=== PATIENT | female | born 2000 | race African-American/Black ===

== ENCOUNTER 2021-11-13 20:30 | Inpatient (IN) ==
--- NOTE | 2021-11-13 20:36 | Emergency Department Note ---
Impression & Plan Intentional overdose, Major depressive disorder, recurrent episode ED Provider Note NAME: CATIE MCFARLAND AGE: 21 SEX: F : 2000 ARRIVES VIA: Ambulance INFORMANT: Patient, ED PROVIDER(S): Amado Suero MD Chief Complaint: Overdose HPI: Patient presented due to concern for overdose. The patient took an unknown amount of an antipsychotic, Pamprin as well as omeprazole. Per the patient's medication list patient takes Lamictal and escitalopram. Patient also takes aripiprazole. Patient had episode of vomiting prior to arrival. Patient is 20's mild upper abdominal pain. No reported trauma. The patient did take with the intent to harm her self. The patient denies any HI or AVH. Patient has a place to go and denies any access to guns or weapons. ROS: See HPI for pertinent positives and negatives. A total of 10 systems were reviewed and otherwise negative. Past medical history: See below Surgical history: See below Social history: See below Physical Exam: GENERAL: Resting comfortably laying on her left side, opens eyes to voice and follows basic commands. EYE EXAM: Normal conjunctiva. PERRL, no anisocoria and EOM's grossly intact w/o pain. OROPHARYNX: Moist mucus membranes. Grossly normal dentition. NECK: Supple, no nuchal rigidity, no adenopathy, non-tender. No signs of meningismus. LUNGS: Clear to auscultation. Normal chest wall mechanics. HEART: NSR, no MRG. ABDOMEN: Abdomen soft, non-tender, normo-active bowel sounds, no masses, no rebound or guarding. BACK: No CVA TTP. SKIN: No rashes and no bruising. UPPER EXTREMITIES: Upper extremities are grossly normal. LOWER EXTREMITIES: Grossly normal, no edema. NEURO EXAM: GCS of 14, opens eyes to voice and does follow commands, cranial nerves II-XII grossly intact, normal speech, moves all 4 extremities on command w/o issue. Psych: Positive SI, negative HI or AVH. Differential diagnoses: Overdose, toxicologic, infection, hypoglycemia, electrolyte abnormalities, cardiac sources, intracerebral event, neurologic, trauma, as well as other pathologies. Course: Patient was seen and evaluated the bedside. Full history physical exam was performed. EKG interpreted by me Normal sinus rhythm, rate of 66, normal intervals, normal axis, no ST elevations. Imaging Studies: See Below [Cardiac monitoring: An order was placed for continuous cardiac monitoring. The monitor shows a rate of with rhythm.] MDM: Patient did present for possible overdose on unknown amount of Pamprin, omeprazole as well as psych medications. I did initiate a call to poison control after the patient did have blood work and tox laboratory work completed. They did recommend bicarb for QRS greater than 120 mag for QTC greater than 500. They did recommend IV fluids for tachycardia. They did recommend a repeat Tylenol at 4 hours. Recommended denies of pains for any tremors or seizures. Patient had a pending repeat Tylenol level at the time of signout to Dr. Cha who was the overnight physician. Poison control had recommended o bservation for 12 hours postingestion given the patient's Escitalopram use. A repeat EKG was ordered at 8 AM. Past Med/Surg History Medical History Major depress dis, severe Multiple fractures of ribs of left side No chronic diseases present Suicidal ideation Surgical History H/O oral surgery Family History Aunt Breast cancer maternal Other Hypertension Denies family history of Ovarian cancer Social History Smoking Status: Unknown if ever smoked Tobacco Type: E-cigarettes / Vaping Preferred Language: Lithuanian Communication Ability: Effective Pulley Maintainer Required: No Beliefs That Will Affect Care: None Feels Safe at Home: Yes Assistive Devices: None Allergies Allergies Allergy/AdvReac Type Severity Reaction Status Date / Time No Known Allergies Allergy Verified 06/07/21 14:26 Home Meds Home Medications Medication Instructions Recorded Confirmed aripiprazole 5 mg tablet 5 mg PO DAILY 11/13/21 11/13/21 escitalopram oxalate 10 mg tablet 10 mg PO DAILY 11/13/21 11/13/21 lamotrigine 25 mg tablet 25 mg PO DAILY 11/13/21 11/13/21 omeprazole 20 mg capsule,delayed 20 mg PO DAILY PRN 11/13/21 11/13/21 release Results & Data (ED) Vital Signs Vital Signs - 24 hr 11/13/21 20:45 11/13/21 20:54 11/13/21 22:15 Pulse Rate 57 L Pulse Rate [Apical] 54 L 61 Pulse Rate from SpO2 Sensor Pulse Rhythm [Apical] Respiratory Rate 11 L 11 L 18 Respiratory Effort / Characteristics Respiratory Depth Normal Normal Respiratory Pattern Blood Pressure 105/67 Blood Pressure [Left Arm] 102/64 Blood Pressure Mean 79 Blood Pressure Mean [Left Arm] 76 Blood Pressure Position [Left Arm] Pulse Oximetry 98 98 96 Oxygen Delivery Method Room Air Room Air Sepsis Recent Fever Within 48 Hours No Sepsis New/Unexplained Change in Mental Status No Sepsis Action Taken by Nursing No Action Required 11/14/21 00:15 11/14/21 02:15 11/14/21 04:00 Pulse Rate Pulse Rate [Apical] 64 61 56 L Pulse Rate from SpO2 Sensor Pulse Rhythm [Apical] Regular Respiratory Rate 18 16 18 Respiratory Effort / Characteristics Non-Labored Spontaneous Respiratory Depth Normal Respiratory Pattern Regular Blood Pressure Blood Pressure [Left Arm] 103/69 117/68 95/57 L Blood Pressure Mean Blood Pressure Mean [Left Arm] 80 84 69 Blood Pressure Position [Left Arm] Sitting Pulse Oximetry 97 96 96 Oxygen Delivery Method Room Air Room Air Room Air Sepsis Recent Fever Within 48 Hours Sepsis New/Unexplained Change in Mental Status Sepsis Action Taken by Nursing 11/14/21 06:00 11/14/21 07:00 11/14/21 07:30 Pulse Rate 64 90 Pulse Rate [Apical] 57 L Pulse Rate from SpO2 Sensor Pulse Rhythm [Apical] Respiratory Rate 18 15 16 Respiratory Effort / Characteristics Respiratory Depth Respiratory Pattern Blood Pressure 103/57 L Blood Pressure [Left Arm] 99/59 L Blood Pressure Mean 72 Blood Pressure Mean [Left Arm] 72 Blood Pressure Position [Left Arm] Pulse Oximetry 98 96 98 Oxygen Delivery Method Room Air Sepsis Recent Fever Within 48 Hours Sepsis New/Unexplained Change in Mental Status Sepsis Action Taken by Nursing 11/14/21 08:00 11/14/21 08:30 Pulse Rate 60 61 Pulse Rate [Apical] Pulse Rate from SpO2 Sensor 62 Pulse Rhythm [Apical] Respiratory Rate 17 16 Respiratory Effort / Characteristics Respiratory Depth Respiratory Pattern Blood Pressure 116/70 Blood Pressure [Left Arm] Blood Pressure Mean 85 Blood Pressure Mean [Left Arm] Blood Pressure Position [Left Arm] Pulse Oximetry 95 97 Oxygen Delivery Method Sepsis Recent Fever Within 48 Hours Sepsis New/Unexplained Change in Mental Status Sepsis Action Taken by Shelter Medications Current Medication List: was personally reviewed by mo Laboratory Data Attestation: I reviewed the patient's lab results. Result diagrams: 11/13/21 20:46 11/13/21 20:46 Lab Results 11/13/21 11/13/21 11/13/21 Range/Units 20:46 20:46 20:46 WBC 8.09 (4.8-10.8) K/uL RBC 4.34 (4.2-5.4) M/uL Hgb 12.0 (12.0-16.0) g/dL Hct 35.7 L (37-47) % MCV 82.3 (80-100) fL MCH 27.6 (25-34) pg MCHC 33.6 (32-36) g/dL RDW Std Deviation 45.4 (36.4-46.3) fL RDW Coeff of [place] 15.0 H (11.5-14.5) % Plt Count 383 (130-400) K/uL MPV 9.9 (7.4-10.4) fL Immature Gran % (Auto) 0.1 % Neut % (Auto) 49.6 % Lymph % (Auto) 33.7 % [place] % (Auto) 10.6 % Eos % (Auto) 5.4 % Baso % (Auto) 0.6 % Neut # (Auto) 4.00 (1.4-6.5) K/uL Lymph # (Auto) 2.73 (1.2-3.4) K/uL [place] # (Auto) 0.86 H (0.11-0.59) K/uL Eos # (Auto) 0.44 (0-0.5) K/uL Baso # (Auto) 0.05 (0-0.2) K/uL Immature Gran # (Auto) 0.01 (0.00-0.02) K/uL PT (9.0-12.0) Seconds INR (0.9-1.1) APTT (21.0-31.0) Seconds PTT Ratio Sodium 140 (136-145) mmol/L Potassium 3.2 L (3.5-5.1) mmol/L Chloride 106 (98-107) mmol/L Carbon Dioxide 25 (21-32) mmol/L Anion Gap 9 (3-11) BUN 8 (6-23) mg/dl Creatinine 0.83 (0.6-1.2) mg/dl Est Cr Clr Drug Dosing Not Reportable Est GFR ( Amer) 116.0 ml/min Est GFR (Non-Af Amer) 100.1 ml/min BUN/Creatinine Ratio 9.6 L (10-20) Glucose 91 (70-99(Fasting)) mg/dl Calcium 9.5 (8.5-10.1) mg/dl Magnesium 1.9 (1.7-2.4) mg/dl Total Bilirubin 0.5 (0.2-1.0) mg/dl AST 17 (13-39) U/L ALT 10 (7-52) U/L Alkaline Phosphatase 52 (34-104) U/L Total Creatine Kinase 82 (26-192) U/L Total Protein 7.9 (6.0-8.3) gm/dl Albumin 4.4 (3.4-5.0) gm/dl Globulin 3.5 (2.5-4.0) gm/dl Albumin/Globulin Ratio 1.3 (0.9-2) Urine Color Urine Appearance (Clear) Urine pH (4.5-7.5) Ur Specific [place] (1.000-1.030) Urine Protein (Negative) Urine Glucose (UA) (Negative) Urine Ketones (Negative) Urine Blood (Negative) Urine Nitrite (Negative) Urine Bilirubin (Negative) Urine Urobilinogen (Negative) Ur Leukocyte Esterase (Negative) Urine WBC (Auto) (0-5) /hpf Urine RBC (Auto) (0-4) /hpf U Hyaline Cast (Auto) (0-5) /lpf U Epithel Cells (Auto) (0-5) /lpf Urine Bacteria (Auto) (Negative) Urine Mucus (None Prsent) Urine Test (Negative) Salicylates 3.1 (3.0-30) mg/dl Urine Opiates Screen (Neg) Ur Methadone, Qual (Neg) Acetaminophen 11 (10-30) ug/ml Urine Barbiturates (Neg) Ur Phencyclidine (PCP) (Neg) U Amphetamin/Meth Scrn (Neg) MDMA (Ecstasy) Screen (Neg) U Benzodiazepines Scrn (Neg) Ur Cocaine Metabolite (Neg) U Marijuana (THC) Screen (Neg) Ethyl Alcohol mg/dL (<10.0) mg/dl SARS-CoV-2, RNA, NAAT (NEGATIVE) 11/13/21 11/13/21 11/13/21 Range/Units 20:46 20:48 21:03 WBC (4.8-10.8) K/uL RBC (4.2-5.4) M/uL Hgb (12.0-16.0) g/dL Hct (37-47) % MCV (80-100) fL MCH (25-34) pg MCHC (32-36) g/dL RDW Std Deviation (36.4-46.3) fL RDW Coeff of [place] (11.5-14.5) % Plt Count (130-400) K/uL MPV (7.4-10.4) fL Immature Gran % (Auto) % Neut % (Auto) % Lymph % (Auto) % [place] % (Auto) % Eos % (Auto) % Baso % (Auto) % Neut # (Auto) (1.4-6.5) K/uL Lymph # (Auto) (1.2-3.4) K/uL [place] # (Auto) (0.11-0.59) K/uL Eos # (Auto) (0-0.5) K/uL Baso # (Auto) (0-0.2) K/uL Immature Gran # (Auto) (0.00-0.02) K/uL PT 11.5 (9.0-12.0) Seconds INR 1.1 (0.9-1.1) APTT 24.2 (21.0-31.0) Seconds PTT Ratio 0.9 Sodium (136-145) mmol/L Potassium (3.5-5.1) mmol/L Chloride (98-107) mmol/L Carbon Dioxide (21-32) mmol/L Anion Gap (3-11) BUN (6-23) mg/dl Creatinine (0.6-1.2) mg/dl Est Cr Clr Drug Dosing Est GFR ( Amer) ml/min Est GFR (Non-Af Amer) ml/min BUN/Creatinine Ratio (10-20) Glucose (70-99(Fasting)) mg/dl Calcium (8.5-10.1) mg/dl Magnesium (1.7-2.4) mg/dl Total Bilirubin (0.2-1.0) mg/dl AST (13-39) U/L ALT (7-52) U/L Alkaline Phosphatase (34-104) U/L Total Creatine Kinase (26-192) U/L Total Protein (6.0-8.3) gm/dl Albumin (3.4-5.0) gm/dl Globulin (2.5-4.0) gm/dl Albumin/Globulin Ratio (0.9-2) Urine Color Urine Appearance (Clear) Urine pH (4.5-7.5) Ur Specific [place] (1.000-1.030) Urine Protein (Negative) Urine Glucose (UA) (Negative) Urine Ketones (Negative) Urine Blood (Negative) Urine Nitrite (Negative) Urine Bilirubin (Negative) Urine Urobilinogen (Negative) Ur Leukocyte Esterase (Negative) Urine WBC (Auto) (0-5) /hpf Urine RBC (Auto) (0-4) /hpf U Hyaline Cast (Auto) (0-5) /lpf U Epithel Cells (Auto) (0-5) /lpf Urine Bacteria (Auto) (Negative) Urine Mucus (None Prsent) Urine Test (Negative) Salicylates (3.0-30) mg/dl Urine Opiates Screen (Neg) Ur Methadone, Qual (Neg) Acetaminophen (10-30) ug/ml Urine Barbiturates (Neg) Ur Phencyclidine (PCP) (Neg) U Amphetamin/Meth Scrn (Neg) MDMA (Ecstasy) Screen (Neg) U Benzodiazepines Scrn (Neg) Ur Cocaine Metabolite (Neg) U Marijuana (THC) Screen (Neg) Ethyl Alcohol mg/dL < 10.0 (<10.0) mg/dl SARS-CoV-2, RNA, NAAT NEGATIVE (NEGATIVE) 11/13/21 11/13/21 11/13/21 Range/Units 23:20 23:20 23:20 WBC (4.8-10.8) K/uL RBC (4.2-5.4) M/uL Hgb (12.0-16.0) g/dL Hct (37-47) % MCV (80-100) fL MCH (25-34) pg MCHC (32-36) g/dL RDW Std Deviation (36.4-46.3) fL RDW Coeff of [place] (11.5-14.5) % Plt Count (130-400) K/uL MPV (7.4-10.4) fL Immature Gran % (Auto) % Neut % (Auto) % Lymph % (Auto) % [place] % (Auto) % Eos % (Auto) % Baso % (Auto) % Neut # (Auto) (1.4-6.5) K/uL Lymph # (Auto) (1.2-3.4) K/uL [place] # (Auto) (0.11-0.59) K/uL Eos # (Auto) (0-0.5) K/uL Baso # (Auto) (0-0.2) K/uL Immature Gran # (Auto) (0.00-0.02) K/uL PT (9.0-12.0) Seconds INR (0.9-1.1) APTT (21.0-31.0) Seconds PTT Ratio Sodium (136-145) mmol/L Potassium (3.5-5.1) mmol/L Chloride (98-107) mmol/L Carbon Dioxide (21-32) mmol/L Anion Gap (3-11) BUN (6-23) mg/dl Creatinine (0.6-1.2) mg/dl Est Cr Clr Drug Dosing Est GFR ( Amer) ml/min Est GFR (Non-Af Amer) ml/min BUN/Creatinine Ratio (10-20) Glucose (70-99(Fasting)) mg/dl Calcium (8.5-10.1) mg/dl Magnesium (1.7-2.4) mg/dl Total Bilirubin (0.2-1.0) mg/dl AST (13-39) U/L ALT (7-52) U/L Alkaline Phosphatase (34-104) U/L Total Creatine Kinase (26-192) U/L Total Protein (6.0-8.3) gm/dl Albumin (3.4-5.0) gm/dl Globulin (2.5-4.0) gm/dl Albumin/Globulin Ratio (0.9-2) Urine Color Yellow Urine Appearance Cloudy A (Clear) Urine pH 6.0 (4.5-7.5) Ur Specific [place] 1.030 (1.000-1.030) Urine Protein 1+ H (Negative) Urine Glucose (UA) Negative (Negative) Urine Ketones 2+ H (Negative) Urine Blood Negative (Negative) Urine Nitrite Negative (Negative) Urine Bilirubin Negative (Negative) Urine Urobilinogen Negative (Negative) Ur Leukocyte Esterase Trace H (Negative) Urine WBC (Auto) 10-30 H (0-5) /hpf Urine RBC (Auto) 0-4 (0-4) /hpf U Hyaline Cast (Auto) 0 (0-5) /lpf U Epithel Cells (Auto) >30 H (0-5) /lpf Urine Bacteria (Auto) 1+ H (Negative) Urine Mucus Present A (None Prsent) Urine Test Negative (Negative) Salicylates (3.0-30) mg/dl Urine Opiates Screen Neg (Neg) Ur Methadone, Qual Neg (Neg) Acetaminophen (10-30) ug/ml Urine Barbiturates Neg (Neg) Ur Phencyclidine (PCP) Neg (Neg) U Amphetamin/Meth Scrn Neg (Neg) MDMA (Ecstasy) Screen Neg (Neg) U Benzodiazepines Scrn Neg (Neg) Ur Cocaine Metabolite Neg (Neg) U Marijuana (THC) Screen Pos H (Neg) Ethyl Alcohol mg/dL (<10.0) mg/dl SARS-CoV-2, RNA, NAAT (NEGATIVE) 11/14/21 Range/Units 00:20 WBC (4.8-10.8) K/uL RBC (4.2-5.4) M/uL Hgb (12.0-16.0) g/dL Hct (37-47) % MCV (80-100) fL MCH (25-34) pg MCHC (32-36) g/dL RDW Std Deviation (36.4-46.3) fL RDW Coeff of [place] (11.5-14.5) % Plt Count (130-400) K/uL MPV (7.4-10.4) fL Immature Gran % (Auto) % Neut % (Auto) % Lymph % (Auto) % [place] % (Auto) % Eos % (Auto) % Baso % (Auto) % Neut # (Auto) (1.4-6.5) K/uL Lymph # (Auto) (1.2-3.4) K/uL [place] # (Auto) (0.11-0.59) K/uL Eos # (Auto) (0-0.5) K/uL Baso # (Auto) (0-0.2) K/uL Immature Gran # (Auto) (0.00-0.02) K/uL PT (9.0-12.0) Seconds INR (0.9-1.1) APTT (21.0-31.0) Seconds PTT Ratio Sodium (136-145) mmol/L Potassium (3.5-5.1) mmol/L Chloride (98-107) mmol/L Carbon Dioxide (21-32) mmol/L Anion Gap (3-11) BUN (6-23) mg/dl Creatinine (0.6-1.2) mg/dl Est Cr Clr Drug Dosing Est GFR ( Amer) ml/min Est GFR (Non-Af Amer) ml/min BUN/Creatinine Ratio (10-20) Glucose (70-99(Fasting)) mg/dl Calcium (8.5-10.1) mg/dl Magnesium (1.7-2.4) mg/dl Total Bilirubin (0.2-1.0) mg/dl AST (13-39) U/L ALT (7-52) U/L Alkaline Phosphatase (34-104) U/L Total Creatine Kinase (26-192) U/L Total Protein (6.0-8.3) gm/dl Albumin (3.4-5.0) gm/dl Globulin (2.5-4.0) gm/dl Albumin/Globulin Ratio (0.9-2) Urine Color Urine Appearance (Clear) Urine pH (4.5-7.5) Ur Specific [place] (1.000-1.030) Urine Protein (Negative) Urine Glucose (UA) (Negative) Urine Ketones (Negative) Urine Blood (Negative) Urine Nitrite (Negative) Urine Bilirubin (Negative) Urine Urobilinogen (Negative) Ur Leukocyte Esterase (Negative) Urine WBC (Auto) (0-5) /hpf Urine RBC (Auto) (0-4) /hpf U Hyaline Cast (Auto) (0-5) /lpf U Epithel Cells (Auto) (0-5) /lpf Urine Bacteria (Auto) (Negative) Urine Mucus (None Prsent) Urine Test (Negative) Salicylates (3.0-30) mg/dl Urine Opiates Screen (Neg) Ur Methadone, Qual (Neg) Acetaminophen 5 L (10-30) ug/ml Urine Barbiturates (Neg) Ur Phencyclidine (PCP) (Neg) U Amphetamin/Meth Scrn (Neg) MDMA (Ecstasy) Screen (Neg) U Benzodiazepines Scrn (Neg) Ur Cocaine Metabolite (Neg) U Marijuana (THC) Screen (Neg) Ethyl Alcohol mg/dL (<10.0) mg/dl SARS-CoV-2, RNA, NAAT (NEGATIVE) Administered Medications Ondansetron HCl (Ondansetron 4 Mg Od Tab) 4 mg PO Q8H PRN PRN Reason: Nausea Stop: 12/14/21 13:43 Last Admin: 11/14/21 14:09 Dose: 4 mg Documented by: [id number] Discontinued Medications Potassium Chloride (Potassium Chloride Crtab 20 Meq Tabcr) 40 meq PO NOW STA Stop: 11/14/21 12:35 Last Admin: 11/14/21 13:30 Dose: 40 meq Documented by: [id number] Discharge Plan Visit Data Chief Complaint: Overdose (Intentional) Discharge Problem: Intentional overdose, Major depressive disorder, recurrent episode Patient Disposition: Admitted As Inpatient Discharge Instructions Interventions: ED Discharge Assessment Last Done: 11/14/21 10:33
[2021-11-13 20:59] LABS: Basophils # (auto) 0.05 K/uL (0-0.2); Basophils % (auto) 0.6 %; Eosinophils # (auto) 0.44 K/uL (0-0.5); Eosinophils % (auto) 5.4 %; Hematocrit (blood only) 35.7 % (37-47); Immature Granulocytes # (auto) 0.01 K/uL (0.00-0.02); Immature Granulocytes % (auto) 0.1 %; Lymphocytes # (auto) 2.73 K/uL (1.2-3.4); Lymphocytes % (auto) 33.7 %; Mean Corpuscular Hemoglobin 27.6 pg (25-34); Mean Corpuscular Hgb Conc 33.6 g/dL (32-36); Mean Corpuscular Volume 82.3 fL (80-100); Mean Platelet Volume 9.9 fL (7.4-10.4); Monocytes # (auto) 0.86 K/uL (0.11-0.59); Monocytes % (auto) 10.6 %; Neutrophils % (auto) 49.6 %; Platelet Count 383 K/uL (130-400); RDW Standard Deviation 45.4 fL (36.4-46.3); Red Blood Count 4.34 M/uL (4.2-5.4); White Blood Count 8.09 K/uL (4.8-10.8)
[2021-11-13 21:15] LABS: INR 1.1 (0.9-1.1); Partial Thromboplastin Ratio 0.9; Partial Thromboplastin Time 24.2 Seconds (21.0-31.0); Prothrombin Time 11.5 Seconds (9.0-12.0)
[2021-11-13 21:19] LABS: Alanine Aminotransferase 10 U/L (7-52); Albumin Globulin Ratio 1.3 (0.9-2); Albumin Level 4.4 gm/dl (3.4-5.0); Alkaline Phosphatase 52 U/L (34-104); Anion Gap 9 (3-11); Aspartate Aminotransferase 17 U/L (13-39); BUN Creatinine Ratio 9.6 (10-20); Bilirubin,Total 0.5 mg/dl (0.2-1.0); Blood Urea Nitrogen 8 mg/dl (6-23); Calcium 9.5 mg/dl (8.5-10.1); Carbon Dioxide 25 mmol/L (21-32); Chloride 106 mmol/L (98-107); Creatine Kinase 82 U/L (26-192); Est GFR (Non-African American) 100.1 ml/min; Globulin 3.5 gm/dl (2.5-4.0); Glucose 91 mg/dl (70-99(Fasting)); Magnesium 1.9 mg/dl (1.7-2.4); Potassium 3.2 mmol/L (3.5-5.1); Sodium 140 mmol/L (136-145); Total Protein 7.9 gm/dl (6.0-8.3)
[2021-11-13 21:28] LABS: Salicylate 3.1 mg/dl (3.0-30)
[2021-11-13 23:43] LABS: Appearance Urine Cloudy (Clear); Bacteria Urine Automated 1+ (Negative); Bilirubin Urine Negative (Negative); Blood Urine Negative (Negative); Color Urine Yellow; Epithelial Cell Urine Auto >30 /lpf (0-5); Glucose Urine UA Negative (Negative); Ketones Urine 2+ (Negative); Leukocyte Esterase Urine Trace (Negative); Nitrite Urine Negative (Negative); Protein Urine 1+ (Negative); RBC Urine Automated 0-4 /hpf (0-4); Urobilinogen Urine Negative (Negative)
[2021-11-13 23:45] LABS: Pregnancy Test, Urine Negative (Negative)
[2021-11-14 00:22] LABS: Amphetamines+Metham, Urine Neg (Neg); Barbiturates, Urine Neg (Neg); Benzodiazepine, Urine Neg (Neg); Cocaine, Urine Neg (Neg); MDMA (Ecstacy), Urine Neg (Neg); Methadone, Urine Neg (Neg); Opiate, Urine Neg (Neg); Phencyclidine, Urine Neg (Neg)
[2021-11-14 00:46] LABS: Cast Urine Automated 0 /lpf (0-5); Mucus Urine Present (None Prsent)
--- NOTE | 2021-11-14 08:47 | Emergency Department Note ---
ED Visit Note Patient signed out to me at change of shift from Dr. Suero. Patient awaiting additional observation time per recommendation of poison control. Patient's repeat Tylenol level decreased from 11-5. No issues reported to me overnight and patient hemodynamically stable. No other new or evolving symptoms. Repeat EKG around 8 AM was well-appearing, patient now medically clear for mental health evaluation. Patient signed out to Dr. Sung in the morning. .
[2021-11-14] MEDS ORDERED: ALUMINUM/MAGNESIUM SUSP 30 ML UDC PO PRN (11:09)
[2021-11-14] MEDS ORDERED: SODIUM CHLORIDE 0.65% NA SOLN 45 ML (OCEAN) PRN (11:09)
[2021-11-14] MEDS ORDERED: hydrOXYzine HCl 25 MG TAB PO PRN ×2 (11:09)
[2021-11-14] MEDS ORDERED: MAGNESIUM HYDROXIDE SUSP 30 ML UDC PO PRN (11:09)
[2021-11-14] MEDS ORDERED: BISMUTH SUBSALICYLATE LIQD 236 ML PO PRN (11:09)
[2021-11-14] MEDS ORDERED: IBUPROFEN 600 MG TAB PO PRN (11:10)
[2021-11-14] MEDS ORDERED: POTASSIUM CHLORIDE CRTAB 20 MEQ TABCR PO STA (12:34)
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
[2021-11-14] MEDS ORDERED: ONDANSETRON 4 MG OD TAB PO PRN (13:44)
--- NOTE | 2021-11-14 15:41 | Emergency Department Note ---
ED Visit Note The patient was taken signout from Dr. Cha at change of shift. The patient was initially seen by Dr. Suero. Please see his note for details of the patient's initial presentation. In brief, the patient is a 21-year-old woman who presented emergency department after an overdose attempt on her medications which include aripiprazole, escitalopram and lamotrigine. Poison control was consulted and the patient was observed for the recommended 12-hour period and was medically cleared. Psychiatric case management evaluation was completed. Referral was made to [facility] who accepted the patient for admission
[2021-11-15 09:05] LABS: Chol HDL Ratio 2.8 (0-5); Potassium 4.3 mmol/L (3.5-5.1)
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
--- NOTE | 2021-11-15 14:05 | Electrocardiogram Report ---
Test Reason : Blood Pressure : / mmHG Vent. Rate : 066 BPM Atrial Rate : 066 BPM P-R Int : 138 ms QRS Dur : 062 ms QT Int : 408 ms P-R-T Axes : 071 064 038 degrees QTc Int : 427 ms Normal sinus rhythm Possible Left atrial enlargement Early repolarization Abnormal ECG When compared with ECG of 01-JUL-2021 22:11, No significant change Confirmed by Luca Dan ([id number]) on 11/15/2021 2:05:24 PM Referred By: REFERRED SELF Confirmed By:Luca Dan
--- NOTE | 2021-11-15 15:34 | Electrocardiogram Report ---
Test Reason : Blood Pressure : / mmHG Vent. Rate : 056 BPM Atrial Rate : 056 BPM P-R Int : 140 ms QRS Dur : 076 ms QT Int : 456 ms P-R-T Axes : 073 050 028 degrees QTc Int : 440 ms Sinus bradycardia Early repolarization Nonspecific T wave abnormality Abnormal ECG When compared with ECG of 13-NOV-2021 21:01, No significant change was found Confirmed by Luca Dan ([id number]) on 11/15/2021 3:33:41 PM Referred By: REFERRED SELF Confirmed By:Luca Dan
[2021-11-16 05:52] LABS: Marijuana Quant, GCMS Urine 2406 ng/mL (<5)
--- NOTE | 2021-11-16 08:45 | Psychiatric Progress Note ---
Date of Service November 16, 2021 Impression / Recommendations Impression 21 yo woman with history of BPAD, MDD, trauma and prior suicide attempts admitted following a suicide attempt via polypharmacy overdose on 302 status. Diagnostically consistent with MDD versus BPAD type II given history of periods of elevated, sustained mood consistent with possible episodes of hypomania/maria luisa in additional to historical diagnosis of BPD. Discussed medication treatment options in detail. Discussed risks, benefits and alternatives. Patient would like to start abilify again and lamictal for mood stabilization and depression. Reviewed risks including but not limited to potential for fatal rash with lamictal and metabolic and movement (TD, acute dystonic rxn) side effects with abilify. Reviewed fasting lipid and glucose which were normal and AIMS 0. (1) Major depressive disorder, recurrent episode: (2) Borderline personality disorder: (3) Bipolar 2 disorder: 11/16/21: Restart abilify 2.5 mg qd and lamictal 25mg qAM tomorrow pending non-elevated lamictal level. 11/15/21: fasting labs reviewed in anticipation of Abilify restart. Potassium is now corrected. 11/14/21: The patient was [facility] on q15 min checks (behavioral with suicide precautions) for safety. The patient will participate in group, recreational, and milieu therapies and will be offered additional individual and family sessions as clinically appropriate. Hold all home meds. Anticipate restarting Abilify soon so will order fasting metabolic labs in am with repeat K (repleting). Repeat UA if desires. Inventory Assets Strengths: has persevered as college student, trauma survivor Needs: engage family again, ongoing aftercare ideally with a DBT component Risk Factors Assessment Do You Have Access To A Gun?: No Mental Health Diagnoses: Yes Previous Attempt: Yes Previous Psychiatric Hospitalization: Yes Protective Factors Assessment : Yes Employed: Yes Supportive Family: Yes (sister) Interval History Identifying Information CATIE MCFARLAND is a 21-year-old F, [employer] student, has a history of a previous admission to 10/2020, and was admitted on 11/14/21 10:21 on a 302 involuntary commitment s/p polydrug OD. Chief Complaint "I'm ok". Review of Systems Sleep Information Total Hours of Sleep: 6.5 Meal Information Percent Meal Consumed - Breakfast: 50 Percent Meal Consumed - Lunch: 25 Percent Meal Consumed - Dinner: 90 Nutrition Comment: pt c/o nausea Subjective Subjective Patient was seen & assessed and interval progress reviewed with treatment team nursing and social work. Has been out of her room and attending some groups. Guarded and withdrawn. Today denies SI, feels this attempt was different "from the past" because she has not felt suicidal since the attempt. She's unsure why her suicidal ideation has resolved. Reviewed restarting medications which she is agreeable to. Denies any other questions or concerns. Physical Exam Psychiatric Orientation: alert and oriented x 3 Apperance: appropriately dressed and appropriately groomed Eye Contact: good eye contact Motor Behavior: no abnormal motor movements Speech: normal rate/rhythm/volume of speech Affect: + constricted affect Mood: + depressed mood Thought Process: goal directed thought process and + concrete thought process Thought Content: reality based without delusions Suicidal Thoughts: denies suicidal thoughts Homicidal Thoughts: denies homicidal thoughts Hallucinations: no auditory hallucinations and no visual hallucinations Cognition: recent memory grossly intact, remote memory grossly intact, attention grossly intact and language grossly intact Estimated Intelligence: consistent with education level Insight: + limited insight Judgement: + limited judgement Vital Signs (Past 24 Hours) Last Vital Signs Temp 36.7 C 11/16/21 06:00 Pulse 71 11/16/21 06:50 Resp 14 11/16/21 06:00 BP 93/62 L 11/16/21 06:50 Pulse Ox 99 11/14/21 11:12 Results & Data ([facility]) Laboratory Results Laboratory Results - last 24 hr 11/13/21 11/15/21 23:20 07:34 Potassium 4.3 D Fasting Glucose 82 Triglycerides 55 Cholesterol 138 LDL Cholesterol, Calc 77 VLDL Cholesterol, Calc 11 HDL Cholesterol 50 Cholesterol/HDL Ratio 2.8 U Marijuana THC Carboxy 2406 H Drug Screen Comment SEE NOTE Lamictal level pending. Current Inpatient Medications Current Inpatient Medications: Current Inpatient Medications Al Hydrox/Mg Hydrox/Simethicone (Aluminum/Magnesium Susp 30 Ml Udc) 30 ml PO Q4H PRN PRN Reason: GI Upset Stop: 12/14/21 11:08 Bismuth Subsalicylate (Bismuth Subsalicylate Liqd 236 Ml) 15 ml PO PRN PRN PRN Reason: Loose Stool Stop: 12/14/21 11:08 Hydroxyzine HCl (Hydroxyzine Hcl 25 Mg Tab) 50 mg PO HSZ PRN PRN Reason: Insomnia Stop: 12/14/21 11:08 Hydroxyzine HCl (Hydroxyzine Hcl 25 Mg Tab) 25 mg PO Q4H PRN PRN Reason: Anxiety Stop: 12/14/21 11:08 Ibuprofen (Ibuprofen 600 Mg Tab) 600 mg PO Q6H PRN PRN Reason: Pain Stop: 12/14/21 11:09 Magnesium Hydroxide (Magnesium Hydroxide Susp 30 Ml Udc) 30 ml PO DAILY PRN PRN Reason: Constipation Stop: 12/14/21 11:08 Ondansetron HCl (Ondansetron 4 Mg Od Tab) 4 mg PO Q8H PRN PRN Reason: Nausea Stop: 12/14/21 13:43 Last Admin: 11/14/21 14:09 Dose: 4 mg Documented by: Sodium Chloride (Sodium Chloride 0.65% Na Soln 45 Ml ([place])) 1 - 2 sprays NA PRN PRN PRN Reason: Nasal Dryness/Congestion Stop: 12/14/21 11:08 Mental Health & Subst Abuse Tx Psychiatrist Name of Psychiatrist: [facility] - Dr. Kallie Tatum Psychiatrist's Date of Appointment with Psychiatrist: 11/28/21 Time of Appointment with Psychiatrist: 2:45 PM Psychiatric Appointment Comment: Telehealth Therapist Name of Therapist: [facility]- Dr. Mel Smyth Therapist's Date of Therapist Appointment: 11/19/21 Time of Therapist Appointment: 12:10 PM Therapy Appointment Comment: Telehealth Post Discharge Appointments Primary Care Physician Name Of Family Doctor: [facility] Primary Care Date of Appointment with PCP: 11/20/21 Time of Appointment with PCP: 1:20 pm Provider Appointment Comment: [facility] Kimberly NIEVES (1) Major depressive disorder, recurrent episode Major depression episode severity: unspecified Qualified Code(s): F33.9 - Major depressive disorder, recurrent, unspecified
[2021-11-16] MEDS: ARIPiprazole 5 MG TAB PO SCH (12:11)
--- NOTE | 2021-11-17 08:22 | Psychiatric Progress Note ---
Date of Service November 17, 2021 Impression / Recommendations Impression 21 yo woman with history of BPAD, MDD, trauma and prior suicide attempts admitted following a suicide attempt via polypharmacy overdose on 302 status. Diagnostically consistent with MDD versus BPAD type II given history of periods of elevated, sustained mood consistent with possible episodes of hypomania/maria luisa in additional to historical diagnosis of BPD. 11/17/21: Tolerating abilify initiation without side effects,still holding off on restarting lamictal given that level is still pending and unknown if lamictal was consumed as part of her suicide attempt (1) Major depressive disorder, recurrent episode: (2) Borderline personality disorder: (3) Bipolar 2 disorder: 11/17/21: Continue with abilify 2.5 mg qd, lamictal level still pending so holding off on restarting lamictal 11/16/21: Restart abilify 2.5 mg qd and lamictal 25mg qAM tomorrow pending non- elevated lamictal level. 11/15/21: fasting labs reviewed in anticipation of Abilify restart. Potassium is now corrected. 11/14/21: The patient was admitted to the [facility] ([facility]) on q15 min checks (behavioral with suicide precautions) for safety. The patient will participate in group, recreational, and milieu therapies and will be offered additional individual and family sessions as clinically appropriate. Hold all home meds. Anticipate restarting Abilify soon so will order fasting metabolic labs in am with repeat K (repleting). Repeat UA if desires. Inventory Assets Strengths: has persevered as college student, trauma survivor Needs: engage family again, ongoing aftercare ideally with a DBT component Risk Factors Assessment Do You Have Access To A Gun?: No Mental Health Diagnoses: Yes Previous Attempt: Yes Previous Psychiatric Hospitalization: Yes Protective Factors Assessment : Yes Employed: Yes Supportive Family: Yes (sister) Interval History Identifying Information CATIE MCFARLAND is a 21-year-old F, [employer] student, has a history of a previous admission to 10/2020, and was admitted on 11/14/21 10:21 on a 302 involuntary commitment s/p polydrug OD. Chief Complaint "I'm good". Review of Systems Sleep Information Total Hours of Sleep: 6.75 Meal Information Percent Meal Consumed - Breakfast: 50 Percent Meal Consumed - Lunch: 80 Percent Meal Consumed - Dinner: 75 Nutrition Comment: pt c/o nausea Subjective Subjective Patient was seen & assessed and interval progress reviewed with treatment team nursing and social work. More engaged yesterday, doing some exercises, smiling when talking about her girlfriend, attending groups and actively participating and offering helpful and supportive advice to peers and good insights into her own thoughts/emotions/behaviors. No side effects from abilify. Reports stable mood. Denies SI. Physical Exam Psychiatric Orientation: alert and oriented x 3 Apperance: appropriately dressed and appropriately groomed Eye Contact: good eye contact Motor Behavior: no abnormal motor movements Speech: normal rate/rhythm/volume of speech Affect: euthymic affect Mood: no depressed mood and no anxious mood Thought Process: goal directed thought process Thought Content: reality based without delusions Suicidal Thoughts: denies suicidal thoughts Homicidal Thoughts: denies homicidal thoughts Hallucinations: no auditory hallucinations and no visual hallucinations Cognition: recent memory grossly intact, remote memory grossly intact, attention grossly intact and language grossly intact Estimated Intelligence: consistent with education level Insight: + fair insight Judgement: + fair judgement Vital Signs (Past 24 Hours) Last Vital Signs Temp 36.9 C 11/17/21 06:19 Pulse 69 11/17/21 06:20 Resp 16 11/17/21 06:19 BP 121/88 11/17/21 06:20 Pulse Ox 99 11/14/21 11:12 Results & Data ([facility]) Current Inpatient Medications Current Inpatient Medications: Current Inpatient Medications Al Hydrox/Mg Hydrox/Simethicone (Aluminum/Magnesium Susp 30 Ml Udc) 30 ml PO Q4H PRN PRN Reason: GI Upset Stop: 12/14/21 11:08 Aripiprazole (Aripiprazole 5 Mg Tab) 2.5 mg PO QAM SHANICE Stop: 12/16/21 10:59 Last Admin: 11/16/21 12:11 Dose: 2.5 mg Documented by: Bismuth Subsalicylate (Bismuth Subsalicylate Liqd 236 Ml) 15 ml PO PRN PRN PRN Reason: Loose Stool Stop: 12/14/21 11:08 Hydroxyzine HCl (Hydroxyzine Hcl 25 Mg Tab) 50 mg PO HSZ PRN PRN Reason: Insomnia Stop: 12/14/21 11:08 Hydroxyzine HCl (Hydroxyzine Hcl 25 Mg Tab) 25 mg PO Q4H PRN PRN Reason: Anxiety Stop: 12/14/21 11:08 Ibuprofen (Ibuprofen 600 Mg Tab) 600 mg PO Q6H PRN PRN Reason: Pain Stop: 12/14/21 11:09 Magnesium Hydroxide (Magnesium Hydroxide Susp 30 Ml Udc) 30 ml PO DAILY PRN PRN Reason: Constipation Stop: 12/14/21 11:08 Ondansetron HCl (Ondansetron 4 Mg Od Tab) 4 mg PO Q8H PRN PRN Reason: Nausea Stop: 12/14/21 13:43 Last Admin: 11/14/21 14:09 Dose: 4 mg Documented by: Sodium Chloride (Sodium Chloride 0.65% Na Soln 45 Ml ([place])) 1 - 2 sprays NA PRN PRN PRN Reason: Nasal Dryness/Congestion Stop: 12/14/21 11:08 Mental Health & Subst Abuse Tx Psychiatrist Name of Psychiatrist: [facility] - Dr. Kallie Tatum Psychiatrist's Date of Appointment with Psychiatrist: 11/28/21 Time of Appointment with Psychiatrist: 2:45 PM Psychiatric Appointment Comment: Telehealth Therapist Name of Therapist: [facility]- Dr. Mel Smyth Therapist's Date of Therapist Appointment: 11/19/21 Time of Therapist Appointment: 12:10 PM Therapy Appointment Comment: Telehealth Post Discharge Appointments Primary Care Physician Name Of Family Doctor: [facility] Primary Care Date of Appointment with PCP: 11/20/21 Time of Appointment with PCP: 1:20 pm Provider Appointment Comment: [facility] (1) Major depressive disorder, recurrent episode Major depression episode severity: unspecified Qualified Code(s): F33.9 - Major depressive disorder, recurrent, unspecified
[2021-11-17] MEDS: ARIPiprazole 5 MG TAB PO SCH (09:03)
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
[2021-11-18] MEDS ORDERED: lamoTRIgine 25 MG TAB PO SCH (09:00)
[2021-11-18] MEDS: ARIPiprazole 5 MG TAB PO SCH (09:05)
== END 2021-11-18 12:55 | disposition home or self-care (01) | DRG 885 ==
LOC: ED 20:30 → 3S 11-14 10:21

== ENCOUNTER 2022-02-13 12:27 | Observation (INO) ==
[2022-02-13] MEDS ORDERED: SODIUM CHLORIDE 0.9% 1000ML 1,000 ML IV ONE (13:03)
--- NOTE | 2022-02-13 13:17 | Emergency Department Note ---
History of Present Illness General Chief complaint: Overdose (Intentional) Time Seen by Provider: 02/13/22 13:02 Source: patient Mode of arrival: EMS Limitations: no limitations History of Present Illness This patient is a 21-year-old female who has a history of depression, comes in after taking intentional overdose. She is very teary-eyed and has a flattened affect but answers questions appropriately. According to police he has some p ills on the bed and when they arrived she grabbed him and took them they managed to get some out of her mouth. She tells me she took Flagyl and Motrin. She does have a history of and having Atarax prescription filled and also Lamictal but denies that she took these. Denies drugs or alcohol. Denies Tylenol. She said she took these because" I did not want to be here anymore". She has had no vomiting or shortness of breath denies . She has not been sleeping well lately. I asked her about stressors and she says " what ever". She answers questions very tersely. She is had no recent illness fever or cough. Home Medications Medication Instructions Recorded Confirmed Type lamotrigine 25 mg tablet 25 mg PO DAILY 11/13/21 02/13/22 History hydroxyzine HCl 25 mg tablet 25 mg PO BID PRN 02/13/22 02/13/22 History lamotrigine 100 mg tablet 100 mg PO DAILY 02/13/22 02/13/22 History Allergies Allergy/AdvReac Type Severity Reaction Status Date / Time No Known Allergies Allergy Verified 02/13/22 13:19 Past Med/Surg History Medical History Anxiety Bipolar 2 disorder Borderline personality disorder Depression Intentional overdose Surgical History H/O oral surgery Family History Aunt Breast cancer maternal Other Hypertension Denies family history of Ovarian cancer Social History Smoking Status: Never smoker Tobacco Type: Cigarettes Hx Alcohol Use: No Hx Substance Use: Yes Preferred Language: Uzbek Communication Ability: Effective Assembler Product Required: No Beliefs That Will Affect Care: None Current Living Situation: Alone Feels Safe at Home: Yes Assistive Devices: None Review of Systems A total of 10 systems reviewed and were otherwise negative Physical Exam Vital Signs Vital Signs - 24 hr 02/13/22 12:19 02/13/22 12:38 02/13/22 12:39 Temperature 36.6 C Temperature Source Oral Pulse Rate 54 L Pulse Rate from SpO2 Sensor 81 Pulse Rhythm Regular Respiratory Rate 16 Respiratory Effort / Characteristics Non-Labored Respiratory Depth Normal Blood Pressure 119/68 119/68 Blood Pressure Mean 85 85 Pulse Oximetry 99 99 Oxygen Delivery Method Room Air Sepsis Recent Fever Within 48 Hours No Sepsis New/Unexplained Change in Mental Status No Sepsis Action Taken by Nursing No Action Required 02/13/22 12:40 02/13/22 12:50 02/13/22 13:00 Temperature Temperature Source Pulse Rate 71 58 L 60 Pulse Rate from SpO2 Sensor 70 Pulse Rhythm Respiratory Rate 7 L 12 16 Respiratory Effort / Characteristics Respiratory Depth Blood Pressure Blood Pressure Mean Pulse Oximetry 99 Oxygen Delivery Method Sepsis Recent Fever Within 48 Hours Sepsis New/Unexplained Change in Mental Status Sepsis Action Taken by Nursing 02/13/22 13:02 02/13/22 13:15 02/13/22 13:20 Temperature Temperature Source Pulse Rate 60 59 L 60 Pulse Rate from SpO2 Sensor 61 Pulse Rhythm Respiratory Rate 13 20 15 Respiratory Effort / Characteristics Respiratory Depth Blood Pressure 120/78 Blood Pressure Mean 92 Pulse Oximetry 100 Oxygen Delivery Method Sepsis Recent Fever Within 48 Hours Sepsis New/Unexplained Change in Mental Status Sepsis Action Taken by Nursing 02/13/22 13:30 02/13/22 13:40 02/13/22 13:50 Temperature Temperature Source Pulse Rate 59 L 56 L 53 L Pulse Rate from SpO2 Sensor 59 L 56 L 53 L Pulse Rhythm Respiratory Rate 20 17 16 Respiratory Effort / Characteristics Respiratory Depth Blood Pressure 122/81 Blood Pressure Mean 94 Pulse Oximetry 100 100 100 Oxygen Delivery Method Sepsis Recent Fever Within 48 Hours Sepsis New/Unexplained Change in Mental Status Sepsis Action Taken by Nursing 02/13/22 14:00 02/13/22 14:10 02/13/22 14:20 Temperature Temperature Source Pulse Rate 55 L 59 L 66 Pulse Rate from SpO2 Sensor 55 L 60 68 Pulse Rhythm Respiratory Rate 16 17 19 Respiratory Effort / Characteristics Respiratory Depth Blood Pressure 117/75 Blood Pressure Mean 89 Pulse Oximetry 100 99 100 Oxygen Delivery Method Sepsis Recent Fever Within 48 Hours Sepsis New/Unexplained Change in Mental Status Sepsis Action Taken by Nursing 02/13/22 14:30 02/13/22 14:40 02/13/22 14:50 Temperature Temperature Source Pulse Rate 62 68 63 Pulse Rate from SpO2 Sensor 62 71 63 Pulse Rhythm Respiratory Rate 18 18 18 Respiratory Effort / Characteristics Respiratory Depth Blood Pressure 120/70 Blood Pressure Mean 86 Pulse Oximetry 100 100 100 Oxygen Delivery Method Sepsis Recent Fever Within 48 Hours Sepsis New/Unexplained Change in Mental Status Sepsis Action Taken by Nursing General: Well developed well nourished in no acute distress, breathing comfortably on room air. Normal speech HEENT: Normal cephalic atraumatic. Pupils are equal round and reactive to light. Extraocular movements are intact. Oropharynx is pink with moist mucous membranes. No swelling of the mouth lips or tongue. Neck: Supple with a midline trachea. No meningeal signs or stiffness, no JVD or bruits. No Stridor. Chest: Clear to auscultation bilaterally. No wheezes or rhonchi. No increased work of breathing. Heart: Regular rate and rhythm without murmurs or gallops. Abdomen: Soft nontender, nondistended without rebound guarding or rigidity. Extremities: No cyanosis clubbing or edema. No calf tenderness or assymetry Spine/Back. Non tender to palpation. No CVA tenderness Skin: Good turgor without rashes. Neurologic exam: Cranial nerves two through 12 are intact. Motor and sensation are intact and symmetrical throughout. Course Administered Medications Discontinued Medications Sodium Chloride (Nss 1000ml) 1,000 mls @ 999 mls/hr IV .Q1H1M ONE Stop: 02/13/22 14:03 Last Infusion: 02/13/22 15:16 Dose: 0 mls/hr Documented by: [id number] Admin: 02/13/22 13:13 Dose: 999 mls/hr Documented by: [id number] Lactated Ringer's (Lr) 1,000 mls @ 110 mls/hr IV .Q9H6M SHANICE Stop: 03/15/22 14:59 Last Infusion: 02/14/22 07:35 Dose: 0 mls/hr Documented by: [id number] Admin: 02/14/22 06:40 Dose: 110 mls/hr Documented by: [id number] Infusion: 02/14/22 06:40 Dose: 110 mls/hr Documented by: [id number] Admin: 02/13/22 23:48 Dose: 110 mls/hr Documented by: [id number] Infusion: 02/13/22 23:48 Dose: 110 mls/hr Documented by: [id number] Admin: 02/13/22 15:16 Dose: 110 mls/hr Documented by: [id number] Magnesium Oxide (Magnesium Oxide 400 Mg Tab) 400 mg PO BID SHANICE Stop: 03/17/22 09:29 Last Admin: 02/15/22 10:17 Dose: 400 mg Documented by: [id number] Ondansetron HCl (Ondansetron Inj 2 Mg/Ml 2 Ml Vial) 4 mg IV NOW STA Stop: 02/13/22 16:02 Last Admin: 02/13/22 16:48 Dose: 4 mg Documented by: [id number] Potassium Chloride (Potassium Chloride Crtab 20 Meq Tabcr) 40 meq PO QAM SHANICE Stop: 03/17/22 09:29 Last Admin: 02/15/22 10:17 Dose: 40 meq Documented by: [id number] Medical Decision Making Differential Diagnosis Overdose, toxicologic, metabolic, electrolyte or metabolic abnormality, depression, anxiety, suicidal ideations, , COVID Medical Records Attestation: I reviewed the patient's medical records. Home Medications Current Medication List: was personally reviewed by me Laboratory Data Attestation: I reviewed the patient's lab results. Result diagrams: 02/15/22 07:20 02/15/22 07:20 Lab Results 02/13/22 02/13/22 02/13/22 Range/Units 12:35 12:35 12:35 WBC (4.8-10.8) K/uL RBC (4.2-5.4) M/uL Hgb (12.0-16.0) g/dL Hct (37-47) % MCV (80-100) fL MCH (25-34) pg MCHC (32-36) g/dL RDW Std Deviation (36.4-46.3) fL RDW Coeff of [place] (11.5-14.5) % Plt Count (130-400) K/uL MPV (7.4-10.4) fL Immature Gran % (Auto) % Neut % (Auto) % Lymph % (Auto) % Bates % (Auto) % Eos % (Auto) % Baso % (Auto) % Neut # (Auto) (1.4-6.5) K/uL Lymph # (Auto) (1.2-3.4) K/uL [place] # (Auto) (0.11-0.59) K/uL Eos # (Auto) (0-0.5) K/uL Baso # (Auto) (0-0.2) K/uL Immature Gran # (Auto) (0.00-0.02) K/uL Sodium (136-145) mmol/L Potassium (3.5-5.1) mmol/L Chloride (98-107) mmol/L Carbon Dioxide (21-32) mmol/L Anion Gap (3-11) BUN (6-23) mg/dl Creatinine (0.6-1.2) mg/dl Est Cr Clr Drug Dosing ml/min Est GFR ( Amer) ml/min Est GFR (Non-Af Amer) ml/min BUN/Creatinine Ratio (10-20) Glucose (70-99(Fasting)) mg/dl Calcium (8.5-10.1) mg/dl Total Bilirubin (0.2-1.0) mg/dl AST (13-39) U/L ALT (7-52) U/L Alkaline Phosphatase (34-104) U/L Total Protein (6.0-8.3) gm/dl Albumin (3.4-5.0) gm/dl Globulin (2.5-4.0) gm/dl Albumin/Globulin Ratio (0.9-2) TSH (0.300-4.500) uIu/ml HCG, Qual (Negative) Urine Color Yellow Urine Appearance Clear (Clear) Urine pH 6.0 (4.5-7.5) Ur Specific [place] 1.005 (1.000-1.030) Urine Protein Negative (Negative) Urine Glucose (UA) Negative (Negative) Urine Ketones Negative (Negative) Urine Blood Negative (Negative) Urine Nitrite Negative (Negative) Urine Bilirubin Negative (Negative) Urine Urobilinogen Negative (Negative) Ur Leukocyte Esterase Trace H (Negative) Urine WBC (Auto) 1-5 (0-5) /hpf Urine RBC (Auto) 0-4 (0-4) /hpf U Hyaline Cast (Auto) 1-5 (0-5) /lpf U Epithel Cells (Auto) >30 H (0-5) /lpf Urine Bacteria (Auto) 2+ H (Negative) Salicylates (3.0-30) mg/dl Urine Opiates Screen Neg (Neg) Ur Methadone, Qual Neg (Neg) Acetaminophen (10-30) ug/ml Urine Barbiturates Neg (Neg) Ur Phencyclidine (PCP) Neg (Neg) U Amphetamin/Meth Scrn Neg (Neg) MDMA (Ecstasy) Screen Neg (Neg) U Benzodiazepines Scrn Neg (Neg) Ur Cocaine Metabolite Neg (Neg) U Marijuana (THC) Screen Pos H (Neg) U Marijuana THC Carboxy 47 H (<5) ng/mL Drug Screen Comment SEE NOTE Ethyl Alcohol mg/dL (<10.0) mg/dl 02/13/22 02/13/22 02/13/22 Range/Units 13:00 13:00 13:00 WBC 7.06 (4.8-10.8) K/uL RBC 4.51 (4.2-5.4) M/uL Hgb 11.6 L (12.0-16.0) g/dL Hct 37.6 (37-47) % MCV 83.4 (80-100) fL MCH 25.7 (25-34) pg MCHC 30.9 L (32-36) g/dL RDW Std Deviation 45.0 (36.4-46.3) fL RDW Coeff of [place] 14.8 H (11.5-14.5) % Plt Count 354 (130-400) K/uL MPV 9.5 (7.4-10.4) fL Immature Gran % (Auto) 0.4 % Neut % (Auto) 49.4 % Lymph % (Auto) 34.7 % Bates % (Auto) 8.4 % Eos % (Auto) 6.7 % Baso % (Auto) 0.4 % Neut # (Auto) 3.49 (1.4-6.5) K/uL Lymph # (Auto) 2.45 (1.2-3.4) K/uL [place] # (Auto) 0.59 (0.11-0.59) K/uL Eos # (Auto) 0.47 (0-0.5) K/uL Baso # (Auto) 0.03 (0-0.2) K/uL Immature Gran # (Auto) 0.03 H (0.00-0.02) K/uL Sodium 139 (136-145) mmol/L Potassium 3.7 (3.5-5.1) mmol/L Chloride 108 H (98-107) mmol/L Carbon Dioxide 27 (21-32) mmol/L Anion Gap 4 (3-11) BUN 9 (6-23) mg/dl Creatinine 0.81 (0.6-1.2) mg/dl Est Cr Clr Drug Dosing 94.9 ml/min Est GFR ( Amer) 119.5 ml/min Est GFR (Non-Af Amer) 103.1 ml/min BUN/Creatinine Ratio 11.1 (10-20) Glucose 74 (70-99(Fasting)) mg/dl Calcium 8.6 (8.5-10.1) mg/dl Total Bilirubin 0.2 (0.2-1.0) mg/dl AST 22 (13-39) U/L ALT 14 (7-52) U/L Alkaline Phosphatase 54 (34-104) U/L Total Protein 6.8 (6.0-8.3) gm/dl Albumin 4.0 (3.4-5.0) gm/dl Globulin 2.8 (2.5-4.0) gm/dl Albumin/Globulin Ratio 1.4 (0.9-2) TSH 0.860 (0.300-4.500) uIu/ml HCG, Qual (Negative) Urine Color Urine Appearance (Clear) Urine pH (4.5-7.5) Ur Specific [place] (1.000-1.030) Urine Protein (Negative) Urine Glucose (UA) (Negative) Urine Ketones (Negative) Urine Blood (Negative) Urine Nitrite (Negative) Urine Bilirubin (Negative) Urine Urobilinogen (Negative) Ur Leukocyte Esterase (Negative) Urine WBC (Auto) (0-5) /hpf Urine RBC (Auto) (0-4) /hpf U Hyaline Cast (Auto) (0-5) /lpf U Epithel Cells (Auto) (0-5) /lpf Urine Bacteria (Auto) (Negative) Salicylates (3.0-30) mg/dl Urine Opiates Screen (Neg) Ur Methadone, Qual (Neg) Acetaminophen (10-30) ug/ml Urine Barbiturates (Neg) Ur Phencyclidine (PCP) (Neg) U Amphetamin/Meth Scrn (Neg) MDMA (Ecstasy) Screen (Neg) U Benzodiazepines Scrn (Neg) Ur Cocaine Metabolite (Neg) U Marijuana (THC) Screen (Neg) U Marijuana THC Carboxy (<5) ng/mL Drug Screen Comment Ethyl Alcohol mg/dL (<10.0) mg/dl 02/13/22 02/13/22 02/13/22 Range/Units 13:00 13:00 13:00 WBC (4.8-10.8) K/uL RBC (4.2-5.4) M/uL Hgb (12.0-16.0) g/dL Hct (37-47) % MCV (80-100) fL MCH (25-34) pg MCHC (32-36) g/dL RDW Std Deviation (36.4-46.3) fL RDW Coeff of [place] (11.5-14.5) % Plt Count (130-400) K/uL MPV (7.4-10.4) fL Immature Gran % (Auto) % Neut % (Auto) % Lymph % (Auto) % [place] % (Auto) % Eos % (Auto) % Baso % (Auto) % Neut # (Auto) (1.4-6.5) K/uL Lymph # (Auto) (1.2-3.4) K/uL [place] # (Auto) (0.11-0.59) K/uL Eos # (Auto) (0-0.5) K/uL Baso # (Auto) (0-0.2) K/uL Immature Gran # (Auto) (0.00-0.02) K/uL Sodium (136-145) mmol/L Potassium (3.5-5.1) mmol/L Chloride (98-107) mmol/L Carbon Dioxide (21-32) mmol/L Anion Gap (3-11) BUN (6-23) mg/dl Creatinine (0.6-1.2) mg/dl Est Cr Clr Drug Dosing ml/min Est GFR ( Amer) ml/min Est GFR (Non-Af Amer) ml/min BUN/Creatinine Ratio (10-20) Glucose (70-99(Fasting)) mg/dl Calcium (8.5-10.1) mg/dl Total Bilirubin (0.2-1.0) mg/dl AST (13-39) U/L ALT (7-52) U/L Alkaline Phosphatase (34-104) U/L Total Protein (6.0-8.3) gm/dl Albumin (3.4-5.0) gm/dl Globulin (2.5-4.0) gm/dl Albumin/Globulin Ratio (0.9-2) TSH (0.300-4.500) uIu/ml HCG, Qual Negative (Negative) Urine Color Urine Appearance (Clear) Urine pH (4.5-7.5) Ur Specific [place] (1.000-1.030) Urine Protein (Negative) Urine Glucose (UA) (Negative) Urine Ketones (Negative) Urine Blood (Negative) Urine Nitrite (Negative) Urine Bilirubin (Negative) Urine Urobilinogen (Negative) Ur Leukocyte Esterase (Negative) Urine WBC (Auto) (0-5) /hpf Urine RBC (Auto) (0-4) /hpf U Hyaline Cast (Auto) (0-5) /lpf U Epithel Cells (Auto) (0-5) /lpf Urine Bacteria (Auto) (Negative) Salicylates < 3.0 L (3.0-30) mg/dl Urine Opiates Screen (Neg) Ur Methadone, Qual (Neg) Acetaminophen < 3 L (10-30) ug/ml Urine Barbiturates (Neg) Ur Phencyclidine (PCP) (Neg) U Amphetamin/Meth Scrn (Neg) MDMA (Ecstasy) Screen (Neg) U Benzodiazepines Scrn (Neg) Ur Cocaine Metabolite (Neg) U Marijuana (THC) Screen (Neg) U Marijuana THC Carboxy (<5) ng/mL Drug Screen Comment Ethyl Alcohol mg/dL < 10.0 (<10.0) mg/dl ECG Data Attestation: I personally reviewed and interpreted this ECG as follows: Indication: + toxicologic Rate (beats per minute): 56 Rhythm: + sinus bradycardia ECG Intervals/blocks: + Normal QRS, + Normal QT and + Normal DC ECG [place]: + Normal ECG ST segments: + Normal ST segments ECG Findings: no PACs or no PVCs Comparison ECG Date: from (11/14/21) Change: no significant change MDM Narrative This patient comes in as described above. He was brought in by EMS after taking an intentional overdose. She says that it was ibuprofen and Flagyl but police also states she grabbed a handful of pills on the bed and just took them. She had a full toxicologic/overdose work-up obtained.. Multiple blood testing was obtained. She was placed on a servicing rep and EKG was also obtained.she was hydrated 1 L IV normal saline bolus. Urinalysis was obtained as well. She was reassessed frequently. She has no significant electrolyte or metabolic abnormality. She has normal renal function liver functions. Aspirin and Tylenol levels are negative. Alcohol level is negative. EKG shows no tachycardia and she has normal intervals specifically there is no prolongation of the QT or QTc interval. test was negative. COVID test was negative. I did discuss the case with the poison center and he did recommend monitoring her for at least 6 hours. If she took Lamictal that could cause somnolence. Flagyl can also cause somnolence or neurologic issues if taken in large doses. She also has a very flattened affect and is very depressed as well. I do think she needs medical admission overnight with clearance and then psychiatric evaluation. The police did fill out a 302 statement. She will be [facility] to the [facility] hospitalist team. Continuous cardiac monitoring: An order was placed in EMR for continuous cardiac monitoring. Sin interpretation patient noted to be in normal sinus with a rate of 60 Impression & Plan Depression, Overdose, Anxiety, Suicidal ideations, Lab test negative for COVID- 19 virus Discharge Plan Visit Data Chief Complaint: Overdose (Intentional) ED Provider: Froy Curry Discharge Problem: Depression, Overdose, Anxiety, Suicidal ideations, Lab test negative for COVID- 19 virus Patient Disposition: Admitted As Inpatient Discharge Instructions Interventions: ED Discharge Assessment Last Done: 02/13/22 17:26 Discharge Problem: Depression Qualifiers: Depression Type: unspecified Qualified Code(s): F32.A - Depression, unspecified Overdose Qualifiers: Encounter type: initial encounter Injury intent: intentional self-harm Qualified Code(s): T50.902A - Poisoning by unspecified drugs, medicaments and biological substances, intentional self-harm, initial encounter
[2022-02-13 13:29] LABS: Basophils # (auto) 0.03 K/uL (0-0.2); Basophils % (auto) 0.4 %; Eosinophils # (auto) 0.47 K/uL (0-0.5); Eosinophils % (auto) 6.7 %; Hematocrit (blood only) 37.6 % (37-47); Hemoglobin 11.6 g/dL (12.0-16.0); Immature Granulocytes # (auto) 0.03 K/uL (0.00-0.02); Immature Granulocytes % (auto) 0.4 %; Lymphocytes # (auto) 2.45 K/uL (1.2-3.4); Lymphocytes % (auto) 34.7 %; Mean Corpuscular Hemoglobin 25.7 pg (25-34); Mean Corpuscular Hgb Conc 30.9 g/dL (32-36); Mean Corpuscular Volume 83.4 fL (80-100); Mean Platelet Volume 9.5 fL (7.4-10.4); Monocytes # (auto) 0.59 K/uL (0.11-0.59); Monocytes % (auto) 8.4 %; Neutrophils # (auto) 3.49 K/uL (1.4-6.5); Neutrophils % (auto) 49.4 %; Platelet Count 354 K/uL (130-400); RDW Coefficient of Variation 14.8 % (11.5-14.5); Red Blood Count 4.51 M/uL (4.2-5.4); White Blood Count 7.06 K/uL (4.8-10.8)
[2022-02-13 13:36] LABS: Appearance Urine Clear (Clear); Bacteria Urine Automated 2+ (Negative); Bilirubin Urine Negative (Negative); Blood Urine Negative (Negative); Color Urine Yellow; Epithelial Cell Urine Auto >30 /lpf (0-5); Glucose Urine UA Negative (Negative); Ketones Urine Negative (Negative); Leukocyte Esterase Urine Trace (Negative); Nitrite Urine Negative (Negative); Protein Urine Negative (Negative); RBC Urine Automated 0-4 /hpf (0-4); Specific Gravity Urine 1.005 (1.000-1.030); Urobilinogen Urine Negative (Negative)
[2022-02-13 13:47] LABS: Pregnancy Test, Serum Negative (Negative)
[2022-02-13 13:48] LABS: Albumin Globulin Ratio 1.4 (0.9-2); BUN Creatinine Ratio 11.1 (10-20); Bilirubin,Total 0.2 mg/dl (0.2-1.0); Calcium 8.6 mg/dl (8.5-10.1); Creatinine Clr Calc Pharmacy 94.9 ml/min; Est GFR (African American) 119.5 ml/min; Est GFR (Non-African American) 103.1 ml/min; Globulin 2.8 gm/dl (2.5-4.0); Potassium 3.7 mmol/L (3.5-5.1); Total Protein 6.8 gm/dl (6.0-8.3)
[2022-02-13 13:49] LABS: Acetaminophen < 3 ug/ml (10-30); Salicylate < 3.0 mg/dl (3.0-30)
[2022-02-13 14:40] LABS: Amphetamines+Metham, Urine Neg (Neg); Barbiturates, Urine Neg (Neg); Benzodiazepine, Urine Neg (Neg); Cocaine, Urine Neg (Neg); MDMA (Ecstacy), Urine Neg (Neg); Methadone, Urine Neg (Neg); Opiate, Urine Neg (Neg); Phencyclidine, Urine Neg (Neg)
--- NOTE | 2022-02-13 14:47 | History & Physical Report ---
Date of Service February 13, 2022 Assessment & Plan (1) Overdose: Plan: Intentional overdose of unknown agents and amounts - neurologically intact and follows commands - HCO3 normal, electrolytes normal at this time- follow tonight and in AM - Continue with IVF with LR - Lamotrigine level sent- may help with restarting medication as well as if this was part of her ingestion - no seizures - neuro exams q4 hour - her mental status at this time appears to be more psych related than her ingestion - as she was participating with conversation until asked about why she took and what she took - suicide precautions, 1:1 observation, and safe tray- patient unable/unwilling to commit to safety Patient follows with psych and was just discharged in October for inpatient stay (2) Depression: Plan: Hold abilify, hold Lamictal can likely restart her abilify 2.5mg daily in the morning - pending Lamictal level as above (3) Anxiety: Plan: As above (4) Borderline personality disorder: Plan: Borderline personality disorder with BP 2 disorder as above History of Present Illness Primary Care Provider: NO PCP 21 YOF brought to the EMD for intentional ingestion of unknown medications. The patient states that she took ibuprofen and metronidazole. "She states she had a prescription for this because some saji gave her chlamydia". She states that she took these because she was "not in the right state of mind. " When asked what occurred to put her in a different state of mind, the patient stopped communicating and closed her eyes and would just grunt at questions. She did participate in exam by opening eyes and moving her extremities and opening mouth. She denies any nausea or vomiting. Initially upon entering the room the patient was awake and on her cell phone, then shut down communication and closed her eyes when asked personal questions. Apparently police came to her house and they reported that she took a handful of pills and swallowed them, she had bottles of Atarax, Lamotrigine, and Flagyl. These were empty. In the EMD the patient had routine labs performed to include urine tox screen, acetaminophen, and asa level. She has no other hanna on her legs or arms/hands. Urine Tox just positive for marijuana. Urine appears like contaminant from sample. Psych will be consulted and will continue suicide precautions. Will admit to telem etry for monitoring as unsure what all is ingested. Lamotrigine level sent for dose following and eval for possible over ingestion. Poison control was consulted by EMD. COVID test on admission is: NEGATIVE Allergies Allergy/AdvReac Type Severity Reaction Status Date / Time No Known Allergies Allergy Verified 02/13/22 13:19 Home Medications Medication Instructions Recorded Confirmed Type lamotrigine 25 mg tablet 25 mg PO DAILY 11/13/21 02/13/22 History hydroxyzine HCl 25 mg tablet 25 mg PO BID PRN 02/13/22 02/13/22 History lamotrigine 100 mg tablet 100 mg PO DAILY 02/13/22 02/13/22 History Past Med/Surg History Medical History Anxiety Bipolar 2 disorder Borderline personality disorder Depression Intentional overdose Surgical History H/O oral surgery Family History Aunt Breast cancer maternal Other Hypertension Denies family history of Ovarian cancer Social History Smoking Status: Never smoker Tobacco Type: Cigarettes Hx Alcohol Use: No Hx Substance Use: Yes Preferred Language: [place] Communication Ability: Effective Electrician Telephone Required: No Beliefs That Will Affect Care: None Current Living Situation: Alone Feels Safe at Home: Yes Assistive Devices: None Review of Systems Review of Systems: REVIEW OF SYSTEMS: Limited to patient cooperation Constitutional: No fever, sweats or chills ENT: normal hearing, no trouble swallowing Respiratory: No cough, sputum, dyspnea at rest or on exertion Cardiovascular: No chest pain, tightness or palpitations Abdomen: No pain, nausea, vomiting, diarrhea or constipation Psychiatric: (+) depression, Skin: No rash or itch Physical Exam Physical Exam: PHYSICAL EXAM: General: awake, but then she closes her eyes and appears somnulent, no apparent distress Head: Normocephalic, atraumatic ENT: PERRLA, EOMI, no pharyngeal exudate, mucous membranes moist Neuro: AAO x 3, speech clear and appropriate, strength intact bilaterally 5/5, sensation intact and equal all extremities and dermatomes, Chest: equal rise and fall of the chest, no accessory muscle use, no heaves or thrills, Clear to auscultation, on room air, Cardiac: Regular rate and rhythm, telemetry reviewed- NSR no ectopy, skin warm dry, cap refill <3 seconds, peripheral pulses +2 no JVD, no murmur,no edema GI: NABS x 4 quadrants, soft, nontender to palpation, no rebound, guarding or tenderness : Spontaneously voiding, no pain, no CVA tenderness, Extremities: Normal inspection, no peripheral edema or erythema, calfs nontender to palpation Psych: flat affect and as above, "goes to sleep" when questions asked about event Skin: no rash or erythema Results & Data Results & Data ([facility]) Vital Signs (Past 12 Hours) Vital Signs Temp Pulse Resp BP Pulse Ox 02/13/22 14:10 59 L 17 99 02/13/22 14:00 55 L 16 117/75 100 02/13/22 13:50 53 L 16 100 02/13/22 13:40 56 L 17 100 02/13/22 13:30 59 L 20 122/81 100 02/13/22 13:20 60 15 100 02/13/22 13:15 59 L 20 02/13/22 13:02 60 13 120/78 02/13/22 13:00 60 16 02/13/22 12:50 58 L 12 02/13/22 12:40 71 7 L 99 02/13/22 12:39 99 02/13/22 12:38 119/68 02/13/22 12:19 36.6 C 54 L 16 119/68 99 Laboratory Results Abnormal lab results 02/13/22 02/13/22 02/13/22 Range/Units 12:35 12:35 13:00 Hgb 11.6 L (12.0-16.0) g/dL MCHC 30.9 L (32-36) g/dL RDW Coeff of [place] 14.8 H (11.5-14.5) % Immature Gran # (Auto) 0.03 H (0.00-0.02) K/uL Chloride (98-107) mmol/L Ur Leukocyte Esterase Trace H (Negative) U Epithel Cells (Auto) >30 H (0-5) /lpf Urine Bacteria (Auto) 2+ H (Negative) Salicylates (3.0-30) mg/dl Acetaminophen (10-30) ug/ml U Marijuana (THC) Screen Pos H (Neg) 02/13/22 02/13/22 Range/Units 13:00 13:00 Hgb (12.0-16.0) g/dL MCHC (32-36) g/dL RDW Coeff of [place] (11.5-14.5) % Immature Gran # (Auto) (0.00-0.02) K/uL Chloride 108 H (98-107) mmol/L Ur Leukocyte Esterase (Negative) U Epithel Cells (Auto) (0-5) /lpf Urine Bacteria (Auto) (Negative) Salicylates < 3.0 L (3.0-30) mg/dl Acetaminophen < 3 L (10-30) ug/ml U Marijuana (THC) Screen (Neg) Medications Administered Home Medications lamotrigine 25 mg tablet 25 mg PO DAILY 11/13/21 [History Confirmed 02/13/22] hydroxyzine HCl 25 mg tablet 25 mg PO BID PRN 02/13/22 [History Confirmed 02/13/22] lamotrigine 100 mg tablet 100 mg PO DAILY 02/13/22 [History Confirmed 02/13/22] Active Medications Lactated Ringer's (Lr) 1,000 mls @ 110 mls/hr IV .Q9H6M SHANICE Stop: 03/15/22 14:59 Discontinued Medications Sodium Chloride (Nss 1000ml) 1,000 mls @ 999 mls/hr IV .Q1H1M ONE Stop: 02/13/22 14:03 Last Admin: 02/13/22 13:13 Dose: 999 mls/hr Documented by: [id number] ECG Additional Comments: Sinus bradycardia Otherwise normal ECG When compared with ECG of 14-NOV-2021 07:49, Nonspecific T wave abnormality no longer evident in Anterior leads Code Status & VTE Plan Code Status CODE: FULL VTE: SCDS, ambulation Supervising Physician Co-Signing Physician Notes Patient seen and examined at bedside. During face to face encounter, I obtained a history and physical examination. I discussed case with patient and ALISON Perez. I reviewed above note and agree with it. Patient will be admitted with intentional overdose. Will monitor patient on telemonitor. Will consult psych for possible placement. PG Care Time/CCT Total # of Minutes Spent Total Time Spent with Patient: Total time spent is greater than 50% in coordination of care (as documented) at patient's floor/unit and/or counseling patient: Coding Level of Care Code 63357 Initial Inpt Care Lvl 3 Diagnoses Overdose T50.901A Depression F32.A Anxiety F41.9 Borderline personality disorder F60.3
[2022-02-13] MEDS: LACTATED RINGER'S 1,000 ML IV SCH ×2 (15:16→23:48)
[2022-02-13] MEDS ORDERED: ONDANSETRON INJ 2 MG/ML 2 ML VIAL IV STA (16:01)
[2022-02-13] MEDS ORDERED: DEXTROSE 50% 50 ML SYRINGE IV PRN (17:51)
[2022-02-13] MEDS ORDERED: GLUCOSE 10 TABS/TUBE PO PRN (17:51)
[2022-02-13] MEDS ORDERED: GLUCOSE 40% GEL 15 GM TUBE PO PRN (17:51)
[2022-02-13] MEDS ORDERED: CARBOHYDRATES FOR HYPOGLYCEMIA PO PRN (17:51)
[2022-02-13] MEDS ORDERED: GLUCAGON FOR INJ 1 MG VIAL SQ PRN (17:51)
--- NOTE | 2022-02-13 18:27 | Electrocardiogram Report ---
Test Reason : Blood Pressure : / mmHG Vent. Rate : 056 BPM Atrial Rate : 056 BPM P-R Int : 118 ms QRS Dur : 072 ms QT Int : 426 ms P-R-T Axes : 024 036 016 degrees QTc Int : 411 ms Poor data quality, interpretation may be adversely affected Sinus bradycardia Otherwise normal ECG When compared with ECG of 14-NOV-2021 07:49, Nonspecific T wave abnormality no longer evident in Anterior leads Confirmed by Marvin Schwartz ([id number]) on 02/13/2022 6:27:01 PM Referred By: REFERRED SELF Confirmed By:Jostin Schwartz
[2022-02-13 20:45] LABS: BUN Creatinine Ratio 11.3 (10-20); Creatinine Clr Calc Pharmacy 108.3 ml/min; Est GFR (African American) 140.1 ml/min; Est GFR (Non-African American) 120.9 ml/min; Potassium 3.6 mmol/L (3.5-5.1)
[2022-02-14] MEDS: LACTATED RINGER'S 1,000 ML IV SCH (06:40)
[2022-02-14 12:08] LABS: Basophils # (auto) 0.03 K/uL (0-0.2); Basophils % (auto) 0.4 %; Eosinophils # (auto) 0.31 K/uL (0-0.5); Eosinophils % (auto) 3.9 %; Hematocrit (blood only) 32.9 % (37-47); Hemoglobin 10.4 g/dL (12.0-16.0); Immature Granulocytes # (auto) 0.02 K/uL (0.00-0.02); Immature Granulocytes % (auto) 0.3 %; Lymphocytes # (auto) 2.35 K/uL (1.2-3.4); Lymphocytes % (auto) 29.9 %; Mean Corpuscular Hgb Conc 31.6 g/dL (32-36); Mean Corpuscular Volume 82.3 fL (80-100); Mean Platelet Volume 9.6 fL (7.4-10.4); Monocytes # (auto) 0.48 K/uL (0.11-0.59); Monocytes % (auto) 6.1 %; Neutrophils # (auto) 4.68 K/uL (1.4-6.5); Neutrophils % (auto) 59.4 %; Platelet Count 332 K/uL (130-400); RDW Coefficient of Variation 14.7 % (11.5-14.5); RDW Standard Deviation 44.3 fL (36.4-46.3); White Blood Count 7.87 K/uL (4.8-10.8)
[2022-02-14 12:15] LABS: BUN Creatinine Ratio 9.3 (10-20); Calcium 8.3 mg/dl (8.5-10.1); Creatinine Clr Calc Pharmacy 102.5 ml/min; Est GFR (African American) 131.1 ml/min; Est GFR (Non-African American) 113.1 ml/min; Magnesium 1.6 mg/dl (1.7-2.4); Potassium 3.6 mmol/L (3.5-5.1)
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
[2022-02-14 16:00] LABS: Hematocrit (blood only) 32.4 % (37-47); Hemoglobin 10.5 g/dL (12.0-16.0); Mean Corpuscular Hemoglobin 26.9 pg (25-34); Mean Corpuscular Hgb Conc 32.4 g/dL (32-36); Mean Corpuscular Volume 83.1 fL (80-100); Mean Platelet Volume 9.3 fL (7.4-10.4); Platelet Count 318 K/uL (130-400); RDW Coefficient of Variation 14.5 % (11.5-14.5); RDW Standard Deviation 44.3 fL (36.4-46.3); White Blood Count 8.73 K/uL (4.8-10.8)
[2022-02-14 16:35] LABS: Albumin Level 3.7 gm/dl (3.4-5.0); BUN Creatinine Ratio 10.5 (10-20); Bilirubin,Total 0.3 mg/dl (0.2-1.0); Calcium 8.4 mg/dl (8.5-10.1); Creatinine Clr Calc Pharmacy 101.1 ml/min; Est GFR (African American) 129.1 ml/min; Est GFR (Non-African American) 111.3 ml/min; Potassium 3.7 mmol/L (3.5-5.1); Total Protein 6.3 gm/dl (6.0-8.3)
--- NOTE | 2022-02-14 21:30 | Hospitalist Progress Note ---
Date of Service February 14, 2022 Assessment & Plan (1) Overdose: Plan: Intentional overdose of unknown agents and amounts - neurologically intact and follows commands - HCO3 normal, electrolytes normal at this time- follow tonight and in AM - Continue with IVF with LR - Lamotrigine level sent- may help with restarting medication as well as if this was part of her ingestion - no seizures - neuro exams q4 hour - her mental status at this time appears to be more psych related than her ingestion - as she was participating with conversation until asked about why she took and what she took - suicide precautions, 1:1 observation, and safe tray- patient unable/unwilling to commit to safety Patient follows with psych and was just discharged in October for inpatient stay QTC and bmp remain normal. If patient continues to do well on Thursday morning, will medically clear patient. (2) Depression: Plan: Hold abilify, hold Lamictal can likely restart her abilify 2.5mg daily in the morning - pending Lamictal level as above (3) Anxiety: Plan: As above (4) Borderline personality disorder: Plan: Borderline personality disorder with BP 2 disorder as above Admission and Anticipated Discharge Date Admission Date: February 13, 2022 Subjective Patient denies any pain, abdominal pain, weakness, chest pain. Patient asking for chlamydia testing due to possible exposure Review of Systems Review of Systems: All systems reviewed & are unremarkable except as noted in HPI & below Physical Exam Physical Exam: General: awake, but then she closes her eyes and appears somnulent, no apparent distress Head: Normocephalic, atraumatic ENT: PERRLA, EOMI, no pharyngeal exudate, mucous membranes moist Neuro: AAO x 3, speech clear and appropriate, strength intact bilaterally 5/5, sensation intact and equal all extremities and dermatomes, Chest: equal rise and fall of the chest, no accessory muscle use, no heaves or thrills, Clear to auscultation, on room air, Cardiac: Regular rate and rhythm, telemetry reviewed- NSR no ectopy, skin warm dry, cap refill <3 seconds, peripheral pulses +2 no JVD, no murmur,no edema GI: NABS x 4 quadrants, soft, nontender to palpation, no rebound, guarding or tenderness : Spontaneously voiding, no pain, no CVA tenderness, Extremities: Normal inspection, no peripheral edema or erythema, calfs nontender to palpation Psych: flat affect and as above, "goes to sleep" when questions asked about event Skin: no rash or erythema Results & Data Results & Data ([facility]) Vital Signs (Past 12 Hours) Vital Signs Pulse 02/14/22 17:17 62 02/14/22 14:34 57 L PG Care Time/CCT Total # of Minutes Spent Total Time Spent with Patient: Total time spent is greater than 50% in coordination of care (as documented) at patient's floor/unit and/or counseling patient: Coding Level of Care Code 92987 Subseq Hosp Care Lvl 2 Diagnoses Overdose T50.902A Encounter type: initial encounter Injury intent: intentional self-harm Depression F32.A Depression Type: unspecified Anxiety F41.9 Borderline personality disorder F60.3 Time Spent (min) 25 (1) Depression Depression Type: unspecified Qualified Code(s): F32.A - Depression, unspecified (2) Overdose Encounter type: initial encounter Injury intent: intentional self-harm Qualified Code(s): T50.902A - Poisoning by unspecified drugs, medicaments and biological substances, intentional self-harm, initial encounter
[2022-02-15 07:47] LABS: Basophils # (auto) 0.04 K/uL (0-0.2); Basophils % (auto) 0.5 %; Eosinophils # (auto) 0.46 K/uL (0-0.5); Eosinophils % (auto) 5.9 %; Hematocrit (blood only) 33.9 % (37-47); Hemoglobin 10.9 g/dL (12.0-16.0); Immature Granulocytes # (auto) 0.01 K/uL (0.00-0.02); Immature Granulocytes % (auto) 0.1 %; Lymphocytes % (auto) 39.7 %; Mean Corpuscular Hemoglobin 26.1 pg (25-34); Mean Corpuscular Hgb Conc 32.2 g/dL (32-36); Mean Corpuscular Volume 81.1 fL (80-100); Mean Platelet Volume 9.5 fL (7.4-10.4); Monocytes % (auto) 7.7 %; Neutrophils % (auto) 46.1 %; Platelet Count 338 K/uL (130-400); RDW Coefficient of Variation 14.5 % (11.5-14.5); RDW Standard Deviation 43.2 fL (36.4-46.3); Red Blood Count 4.18 M/uL (4.2-5.4); White Blood Count 7.81 K/uL (4.8-10.8)
[2022-02-15 08:13] LABS: BUN Creatinine Ratio 13.2 (10-20); Calcium 8.2 mg/dl (8.5-10.1); Est GFR (African American) 143.9 ml/min; Est GFR (Non-African American) 124.2 ml/min; Magnesium 1.6 mg/dl (1.7-2.4); Potassium 3.3 mmol/L (3.5-5.1)
--- NOTE | 2022-02-15 08:48 | Communication Note ---
Date of Service: February 15, 2022 Patient is medically cleared for discharge. Patient may be transitioned to psych facility.
[2022-02-15] MEDS ORDERED: MAGNESIUM OXIDE 400 MG TAB PO SCH (09:30)
[2022-02-15] MEDS ORDERED: POTASSIUM CHLORIDE CRTAB 20 MEQ TABCR PO SCH (09:30)
--- NOTE | 2022-02-15 10:43 | Electrocardiogram Report ---
Test Reason : Blood Pressure : / mmHG Vent. Rate : 060 BPM Atrial Rate : 060 BPM P-R Int : 152 ms QRS Dur : 078 ms QT Int : 430 ms P-R-T Axes : 054 038 028 degrees QTc Int : 430 ms Normal sinus rhythm ST elevation, consider early repolarization Normal ECG When compared with ECG of 13-FEB-2022 13:21, No significant change was found Confirmed by Adolfo Vela ([id number]) on 02/15/2022 10:42:56 AM Referred By: REFERRED SELF Confirmed By:Adolfo Vela
[2022-02-16 10:56] LABS: Marijuana Quant, GCMS Urine 47 ng/mL (<5)
[2022-02-16 17:36] LABS: Chlamydia Trach RNA NOT DETECTED (NOT DETECTED); GC (Neis gonorrhoeae) RNA NOT DETECTED (NOT DETECTED)
--- NOTE | 2022-02-18 08:12 | Discharge Summary ---
Date of Service February 15, 2022 Admission HPI Per Admitting Provider 21 YOF brought to the [facility] for intentional ingestion of unknown medications. The patient states that she took ibuprofen and metronidazole. "She states she had a prescription for this because some saji gave her chlamydia". She states that she took these because she was "not in the right state of mind. " When asked what occurred to put her in a different state of mind, the patient stopped communicating and closed her eyes and would just grunt at questions. She did participate in exam by opening eyes and moving her extremities and opening mouth. She denies any nausea or vomiting. Initially upon entering the room the patient was awake and on her cell phone, then shut down communication and closed her eyes when asked personal questions. Apparently police came to her house and they reported that she took a handful of pills and swallowed them, she had bottles of Atarax, Lamotrigine, and Flagyl. These were empty. In the EMD the patient had routine labs performed to include urine tox screen, acetaminophen, and asa level. She has no other hanna on her legs or arms/hands. Urine Tox just positive for marijuana. Urine appears like contaminant from sample. Psych will be consulted and will continue suicide precautions. Will admit to telemetry for monitoring as unsure what all is ingested. Lamotrigine level sent for dose following and eval for possible over ingestion. Poison control was consulted by [facility]. COVID test on admission is: NEGATIVE Principal Diagnosis intentional overdose Discharge Exam General: awake, no apparent distress Head: Normocephalic, atraumatic ENT: PERRLA, EOMI, no pharyngeal exudate, mucous membranes moist Neuro: AAO x 3, speech clear and appropriate, strength intact bilaterally 5/5, sensation intact and equal all extremities and dermatomes, Chest: equal rise and fall of the chest, no accessory muscle use, no heaves or thrills, Clear to auscultation, on room air, Cardiac: Regular rate and rhythm, telemetry reviewed- NSR no ectopy, skin warm dry, cap refill <3 seconds, peripheral pulses +2 no JVD, no murmur,no edema GI: NABS x 4 quadrants, soft, nontender to palpation, no rebound, guarding or tenderness Extremities: Normal inspection, no peripheral edema or erythema, calfs nontender to palpation Psych: flat affect and as above, "goes to sleep" when questions asked about event Skin: no rash or erythema Discharge Data Allergies Allergy/AdvReac Type Severity Reaction Status Date / Time No Known Allergies Allergy Verified 02/13/22 13:19 Consultations 02/13/22 14:47 ED Decision to Admit Stat 02/13/22 17:51 Consult Psychiatry Routine Hospital Course (1) Overdose: Intentional overdose of unknown agents and amounts - neurologically intact and follows commands - HCO3 normal, electrolytes normal at this time- follow tonight and in AM - Continue with IVF with LR - Lamotrigine level sent- may help with restarting medication as well as if this was part of her ingestion - no seizures - neuro exams q4 hour - her mental status at this time appears to be more psych related than her ingestion - as she was participating with conversation until asked about why she took and what she took - suicide precautions, 1:1 observation, and safe tray- patient unable/unwilling to commit to safety Patient follows with psych and was just discharged in October for inpatient stay QTC and bmp remain normal. If patient continues to do well on Thursday morning, will medically clear patient. On 02/15 QTC remained normal on telemonitor. And bloodwork wa snormal. Patient also denied any blood or dark stools. Patient is medically clear for discharge. Informed psych. (2) Depression: hold psych meds. 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 During your stay at [facility], we have made an effort to correct the problem that brought you to the hospital while keeping you as comfortable as possible. Medications were used to bring your condition under control and your discharge instructions will include directions for any medications you should take after leaving the hospital. Please make sure you see your Primary Care Provider as part of your follow up plan. Pending Studies at Discharge: No Stand-Alone Forms: My [facility] [employer] Blog Design[employer], Smoking Cessation Medications and DC Order Prescriptions: Continued lamotrigine 25 mg tablet 25 mg PO DAILY RF: 0 hydroxyzine HCl 25 mg tablet 25 mg PO BID PRN (Reason: Anxiety) RF: 0 lamotrigine 100 mg tablet 100 mg PO DAILY RF: 0 Discharge Orders: Discharge Order (Routine); Ordered 02/15/22 Ordered By: Jose Miguel Soriano Admission Data Admit Date/Time: 02/13/22 14:51 Attending Provider: Jose Miguel Soriano Admit Provider: Jose Miguel Soriano Primary Care Provider: PCP,NO Other Providers: Jose Miguel Soriano ; Shahrzad Lai ; Mechelle Fong ; Opal Rebolledo Other Interventions: Discharge Summary Assessment (RN) Last Done: 02/15/22 15:53 Coding Level of Care Code D/C DAY MANAGEMENT >30 MINS Diagnoses Overdose T50.902A Encounter type: initial encounter Injury intent: intentional self-harm Depression F32.A Depression Type: unspecified Anxiety F41.9 Borderline personality disorder F60.3
== END 2022-02-15 17:45 | disposition home or self-care (01) ==
LOC: ED 12:27 → 2S 14:51 → INTOOBSV 14:51 → 2S 17:26